=== PATIENT | male | born 1990 | race Caucasian/White ===

== ENCOUNTER 2018-01-16 19:28 | Inpatient (IN) | payer MEDICAID, SELFPAY ==
[2018-01-16 19:29] VITALS: BP 147/76; PULSE 87; RESP 16; TEMP 36.8; O2SAT 99; BMI 27.5
[2018-01-16 21:47] LABS: Absolute Lymphocyte Count 1.43 X10^3/ul (0.83-4.51); Absolute Neutrophil Count 4.7 X10^3/uL (2.0-7.7); Basophil# 0.02 X10^3/uL; Basophil% 0.3 % (0-1); Eosinophils% 1.5 % (0-5); Hematocrit 39.3 % (40-54); Hemoglobin 13.2 g/dl (13.0-16.5); Lymphocyte # 1.43 X10^3/ul (4.0); Lymphocyte % 20.9 % (19-41); Mean Corp Hgb Conc 33.6 g/gl (32-36); Mean Corpuscular Hgb 30.5 pg (27.0-32.0); Mean Corpuscular Volume 90.8 fL (80-94); Mean Platelet Vol. 9.4 fl (6.2-12.0); Monocyte# 0.58 X10^3/uL; Monocyte% 8.5 % (0-10); Neutrophil % 68.8 % (47-70); Platelet Count 207 K/mm3 (150-450); RBC Distribution Width CV 13.1 % (11.6-14.6); RBC Distribution Width SD 43.2 fl (35.1-43.9); Red Blood Count 4.33 M/mm3 (4.6-6.2); White Blood Count 6.8 K/mm3 (4.4-11.0)
[2018-01-16 21:48] LABS: Amphetamine Urine VISTA NEGATIVE (<1000 ng/mL); Barbiturate Urine VISTA NEGATIVE (< 200 ng/mL); Benzodiazepine Urine VISTA NEGATIVE (< 200 ng/mL); Cocaine Urine VISTA NEGATIVE (< 300 ng/mL); Ecstacy Urine VISTA NEGATIVE (< 500 ng/mL); Methadone Urine VISTA NEGATIVE (< 300 ng/mL); PCP Urine VISTA NEGATIVE (< 25 ng/mL); THC Urine VISTA NEGATIVE (< 50 ng/mL); Vista UDS pH Range 7
[2018-01-16 21:48] LABS: POSITIVE COUNT NO; POSITIVE DIFFERENTIAL NO; POSITIVE MORPHOLOGY NO
[2018-01-16 22:31] VITALS: BP 125/63; PULSE 61; RESP 16; O2SAT 98
[2018-01-16 22:37] LABS: Anion Gap 8 (5-15); BUN 8 mg/dL (7-18); BUN/Creat Ratio 11.3 RATIO (10-20); Calcium,Total 8.9 mg/dL (8.5-10.1); Chloride 107 mmol/L (98-107); Creatinine, Serum 0.71 mg/dL (0.70-1.30); EST Glomerular Filtration Rate 140 mL/min (>60); Est Glom Filt Rate - Afr Amer 169 mL/min (>60); Estimated Creatinine Clearance 185.13 ml/min; Glucose 97 mg/dL (74-106); Potassium 3.8 mmol/L (3.5-5.1); Sodium Level 142 mmol/L (136-145)
--- NOTE | 2018-01-16 23:08 | PCM.HP.STD ---
Problem List (1) Heroin withdrawal Status: Acute (2) Polysubstance dependence Status: Acute (3) Tobacco abuse Status: Chronic History of Present Illness Date of Admission: 01/16/18 Chief Complaint: Nausea, vomiting and diarrhea x 1 day The patient is a 27 year old M with a significant history of polysubstance dependence (heroine, tobacco) who presents with 1 day history of nausea, vomiting and diarrhea. Associated with his symptoms is cold sweats, muscle aches, shakiness, anxiety, runny nose and cravings for heroin. He last used heroine 2 days ago. At emergency department his CINA score was 30. Smokes about about half pack of cigarettes per day. Past Medical History Past Medical History (Chronic Problems): Chronic Problems Tobacco abuse (Chronic) Allergies No Known Allergies Allergy (Verified 01/16/18 19:32) Home Medications: Ambulatory Orders Medication Instructions Recorded NK [NK] 01/16/18 Surgical History: no surgical history Smoking Status: Current every day smoker Alcohol: None Drugs: Heroin Review of Systems Constitutional: Denies: Chills, Fever, Weight Change HEENT: Denies: Head Aches, Sinus Congestion, Sinus Drainage Cardiovascular: Denies: Chest Pain, Palpitations Respiratory: Denies: Cough, Shortness of breath at rest, Sputum production Gastrointestinal: Reports: Diarrhea, Nausea, Vomiting Genitourinary: Denies: Dysuria Musculoskeletal: Denies: Joint Pain, Joint Tenderness Skin: Denies: Rash, Wounds Neurological: Denies: Numbness, Tingling, Focal weakness Psychiatric: Reports: Anxiety Hematologic/ Lymphatic: Denies: Easy Bruising, Easy Bleeding VTE Information - Inpt Only VTE Present on Admission: No VTE Mechan Device Prophylaxis: None VTE Pharm Prophylaxis ordered?: No Reason prophylaxis not ordered:: Treatment Not Indicated - Low risk Patient Problems: Active and Suspected Problems Heroin withdrawal (Acute) Polysubstance dependence (Acute) - Physical Exam General: Alert, Oriented x3, Cooperative HEENT: Atraumatic, PERRLA, EOMI, Normocephalic Neck: Supple, No JVD, Negative Carotid Bruits Lungs: Clear to auscultation, Normal air movement Cardiovascular: Regular rate, No murmurs Abdomen: Bowel Sounds Present, Soft, Non Tender Extremities: No edema, Capillary Refill Less than 3 Seconds Skin: No rashes, No breakdown Musculoskeletal: No Tenderness to Palpation of Joints or Extremities Neurological: Cranial nerves II-XII grossly intact Psych/Mental Status: Anxious Vital Signs Temp Pulse Resp BP Pulse Ox 98.2 F 61 16 125/63 H 98 01/16/18 19:29 01/16/18 22:31 01/16/18 22:31 01/16/18 22:31 01/16/18 22:31 Oxygen Delivery Method Room Air Weight: 99.79 kg Body Mass Index (BMI) 27.5 Laboratory Tests Past 24 Hrs 01/16/18 01/16/18 01/16/18 21:15 21:40 21:40 WBC 6.8 RBC 4.33 L Hgb 13.2 Hct 39.3 L MCV 90.8 MCH 30.5 MCHC 33.6 RDW 13.1 RDW Differential 43.2 Plt Count 207 MPV 9.4 Immature Gran % (Auto) 0.000 Neut % (Auto) 68.8 Lymph % (Auto) 20.9 [place] % (Auto) 8.5 Eos % (Auto) 1.5 Baso % (Auto) 0.3 Absolute Neuts (auto) 4.7 Absolute Lymphs (auto) 1.43 Total Counted Not Reportable Sodium 142 Potassium 3.8 Chloride 107 Carbon Dioxide 27.0 Anion Gap 8 BUN 8 Creatinine 0.71 Estim Creat Clear Calc 185.13 Est GFR (MDRD) Af Amer 169 Est GFR (MDRD) Non-Af 140 BUN/Creatinine Ratio 11.3 Glucose 97 Calcium 8.9 Urine Opiates Screen NEGATIVE Urine Methadone Screen NEGATIVE Ur Barbiturates Screen NEGATIVE Ur Phencyclidine Scrn NEGATIVE Ur Amphetamines Screen NEGATIVE U Methamphetamin-MDMA NEGATIVE U Benzodiazepines Scrn NEGATIVE Urine Cocaine Screen NEGATIVE U Cannabinoids Screen NEGATIVE Ur Drug Screen Comment Ethyl Alcohol 01/16/18 21:40 WBC RBC Hgb Hct MCV MCH MCHC RDW RDW Differential Plt Count MPV Immature Gran % (Auto) Neut % (Auto) Lymph % (Auto) [place] % (Auto) Eos % (Auto) Baso % (Auto) Absolute Neuts (auto) Absolute Lymphs (auto) Total Counted Sodium Potassium Chloride Carbon Dioxide Anion Gap BUN Creatinine Estim Creat Clear Calc Est GFR (MDRD) Af Amer Est GFR (MDRD) Non-Af BUN/Creatinine Ratio Glucose Calcium Urine Opiates Screen Urine Methadone Screen Ur Barbiturates Screen Ur Phencyclidine Scrn Ur Amphetamines Screen U Methamphetamin-MDMA U Benzodiazepines Scrn Urine Cocaine Screen U Cannabinoids Screen Ur Drug Screen Comment Ethyl Alcohol 5.0 Assessment/Plan All Active Problems Heroin withdrawal (Acute) Polysubstance dependence (Acute) The patient is a 27 year old M with a significant history of polysubstance dependence (heroine, tobacco) who presents with 1 day history of nausea, vomiting and diarrhea. Associated with his symptoms is cold sweats, muscle aches, shakiness, anxiety, runny nose and cravings for heroin. He last used heroine 2 days ago. At emergency department his CINA score was 30. Smokes about about half pack of cigarettes per day. Heroine withdrawal Narcotic withdrawal protocol with buprenorphine. Clonidine, bentyl, hydroxyzine, methocarbamol ordered. Counseled Tobacco abuse Counseled Inpatient consult tobacco cessation Nicotine patch ordered DVT prophylaxis Low risk Not indicated. Code Visit Inpatient E&M: 70133 Init Hosp L3
--- NOTE | 2018-01-16 23:21 | ED.VISSUMM ---
- ER Visit Summary Date of Service: 01/16/18 Chief Complaint: Heroin withdrawal History of Present Illness: The patient is a 27 M who is in heroin withdrawal. His last use was 2 days ago. He uses about a gram a day. He has had nausea, vomiting and diarrhea. He has had hot and cold sensitivities. He does feel anxious. He was at [facility] and was given a clonidine patch. Physical Examination: Vital signs reviewed. HEENT exam unremarkable. Heart is tachycardic and regular rhythm without murmurs. Lungs are clear to auscultation. Abdomen is soft and nontender. Extremities reveal no edema. Skin exam normal. Neurologic exam does show some tremulousness Test Results: Screening labs are negative. Tox and alcohol are negative Emergency Department Course and Treatment: She was given Bentyl and Zofran. His withdrawal score is 30. He is moderately withdrawn. He meets criteria for admission. He has straight Medicaid. He will be discussed with the list for admission Treatment Plan: [] Disposition: Admit Impression: Heroin withdrawal This note was generated with [employer] dictation software. It may contain incorrect words, spelling, and punctuation that were not noted in review of the chart prior to signing ED Disposition - Plan for ED Patient: Chief Complaint: Substance Abuse Referrals: Care Physician,No Primary [Primary Care Provider] -
[2018-01-16] MEDS: Dicyclomine 20 MG/2 ML Vial IM (23:39)
[2018-01-16] MEDS: Ondansetron 4 MG/2 ML Vial IV (23:39)
[2018-01-17] VITALS (7 sets, daily range): BP systolic 92–119; BP diastolic 52–75; PULSE 64–78; RESP 16–18; TEMP 36.3–36.9; O2SAT 96–99; BMI 26.9
[2018-01-17] MEDS: cloNIDine HCl 0.1 MG Tablet PO ×4 (00:34→19:48)
[2018-01-17] MEDS: Buprenorphine HCl 2 MG TAB.SUBL SL ×3 (00:34→16:30)
--- NOTE | 2018-01-17 01:59 | NURSING ---
MESSAGE LEFT FOR [facility] TO SEE PT
[2018-01-17] MEDS: hydrOXYzine PAM 25 MG Capsule 50 MG PO ×3 (03:27→16:31)
[2018-01-17 06:36] LABS: Absolute Neutrophil Count 3.8 X10^3/uL (2.0-7.7); Basophil# 0.02 X10^3/uL; Basophil% 0.3 % (0-1); Eosinophil# 0.14 X10^3/uL; Hematocrit 38.5 % (40-54); Hemoglobin 12.7 g/dl (13.0-16.5); Lymphocyte % 31.7 % (19-41); Mean Corpuscular Hgb 30.4 pg (27.0-32.0); Mean Corpuscular Volume 92.1 fL (80-94); Mean Platelet Vol. 9.4 fl (6.2-12.0); Monocyte# 0.76 X10^3/uL; Neutrophil # 3.82 X10^3/uL (2.7-7.7); Platelet Count 193 K/mm3 (150-450); RBC Distribution Width CV 12.8 % (11.6-14.6); RBC Distribution Width SD 42.6 fl (35.1-43.9); Red Blood Count 4.18 M/mm3 (4.6-6.2); White Blood Count 6.9 K/mm3 (4.4-11.0)
[2018-01-17 06:40] LABS: POSITIVE COUNT NO; POSITIVE DIFFERENTIAL NO; POSITIVE MORPHOLOGY NO
[2018-01-17 06:49] LABS: Anion Gap 8 (5-15); BUN 9 mg/dL (7-18); BUN/Creat Ratio 11.9 RATIO (10-20); Calcium,Total 8.4 mg/dL (8.5-10.1); Chloride 109 mmol/L (98-107); Creatinine, Serum 0.76 mg/dL (0.70-1.30); EST Glomerular Filtration Rate 130 mL/min (>60); Est Glom Filt Rate - Afr Amer 157 mL/min (>60); Estimated Creatinine Clearance 172.95 ml/min; Glucose 92 mg/dL (74-106); Potassium 3.8 mmol/L (3.5-5.1); Sodium Level 146 mmol/L (136-145)
[2018-01-17] MEDS: Methocarbamol 750 MG Tablet PO ×2 (07:48→16:31)
--- NOTE | 2018-01-17 07:52 | PCM.PN.HOSP ---
Patient Problems: Active and Suspected Problems Heroin withdrawal (Acute) Polysubstance dependence (Acute) Subjective: Patient is a 27-year-old male with history of stents abuse who presented with acute opioid withdrawal admitted to regular nursing floor for medical stabilization Patient seen complains of being nauseous as well as experiencing muscle cramps Objective: GENERAL: cooperative HEENT: Clear conjunctiva, NECK; supple, normal thyroid, CHEST: Clear to auscultation bilaterally, HEART: Regular S1 S2, no audible murmurs ABDOMEN: soft, non-tender, normoactive bowel sounds, RECTAL: deferred EXTREMITIES: No edema, no clubbing, no cyanosis. PHYSICS INSTRUCTOR: Awake; no lateralizing signs. SKIN: No Rash Vitals/I&O's: Vital Signs Temp Pulse Resp BP Pulse Ox 97.9 F 76 16 92/75 96 01/17/18 03:30 01/17/18 03:30 01/17/18 03:30 01/17/18 03:30 01/17/18 07:29 Oxygen Delivery Method Room Air Weight: 97.8 kg Body Mass Index (BMI) 26.9 Laboratory Results 01/17/18 06:20: WBC 6.9, RBC 4.18 L, Hgb 12.7 L, Hct 38.5 L, MCV 92.1, MCH 30.4, MCHC 33.0, RDW 12.8, RDW Differential 42.6, Plt Count 193, MPV 9.4, Immature Gran % (Auto) 0.000, Neut % (Auto) 55.0, Lymph % (Auto) 31.7, [place] % (Auto) 11.0 H, Eos % (Auto) 2.0, Baso % (Auto) 0.3, Absolute Neuts (auto) 3.8, Absolute Lymphs (auto) 2.20, Total Counted Not Reportable 01/17/18 06:20: Sodium 146 H, Potassium 3.8, Chloride 109 H, Carbon Dioxide 29.0, Anion Gap 8, BUN 9, Creatinine 0.76, Estim Creat Clear Calc 172.95, Est GFR (MDRD) Af Amer 157, Est GFR (MDRD) Non-Af 130, BUN/Creatinine Ratio 11.9, Glucose 92, Calcium 8.4 L Current Medications Buprenorphine HCl (Buprenorphine Hcl) 4 mg SL Q8H OMAR PRN Reason: Taper Stop: 01/20/18 04:29 Last Admin: 01/17/18 07:49 Dose: 4 mg Clonidine (Catapres) 0.1 mg PO Q2H PRN PRN PRN Reason: Hot/Cold Sweats or Anxiety Last Admin: 01/17/18 07:49 Dose: 0.1 mg Dicyclomine HCl (Bentyl) 20 mg PO Q6H PRN PRN PRN Reason: Abdomnial Discomfort Hydroxyzine Pamoate (Vistaril Pamoate Capsule) 50 mg PO Q6H PRN PRN PRN Reason: Mild Anxiety Last Admin: 01/17/18 03:27 Dose: 50 mg Magnesium Hydroxide (Milk Of Magnesia) 30 ml PO DAILY PRN PRN PRN Reason: Constipation Methocarbamol (Methocarbamol) 750 mg PO Q6H PRN PRN PRN Reason: Muscle Aches Last Admin: 01/17/18 07:48 Dose: 750 mg Nicotine (Nicoderm Cq (Pbkc)) 14 mg TRANSDERM. DAILY OMAR Last Admin: 01/17/18 07:49 Dose: 14 mg Ondansetron HCl (Zofran Odt) 4 mg PO Q6H PRN PRN PRN Reason: NAUSEA Zolpidem Tartrate (Ambien (Generic)) 5 mg PO QHS PRN PRN PRN Reason: INSOMNIA Medical Necessity - Tobacco Use Smoking Status: Current every day smoker Assessment/Plan All Active Problems Heroin withdrawal (Acute) Polysubstance dependence (Acute) Patient is a 27-year-old male with history of stents abuse who presented with acute opioid withdrawal admitted to regular nursing floor for medical stabilization 1. Acute opioid withdrawal: Patient has been admitted to the regular nursing floor for medical stabilization using Subutex 2. Tobacco dependence counseled on cessation, offered nicotine patch for tobacco cravings 3. Pressure with anxiety patient to follow-up with psychiatrist following his medical stabilization 4. DVT prophylaxis low risk did encourage early ambulation Code Visit Inpatient E&M: 77967 [facility] Hosp L3
[2018-01-17] MEDS: Dicyclomine 10 MG Capsule 20 MG PO ×2 (09:43→16:31)
[2018-01-18] MEDS: Buprenorphine HCl 2 MG TAB.SUBL SL ×3 (00:23→16:23)
[2018-01-18] MEDS: Zolpidem Tartrate 5 MG Tablet PO (00:26)
[2018-01-18 00:27] VITALS: BP 115/61; PULSE 59; RESP 16; TEMP 36.6
[2018-01-18 07:40] VITALS: O2SAT 97
--- NOTE | 2018-01-18 08:31 | PN_ITS ---
Patient Problems: Active and Suspected Problems Heroin withdrawal (Acute) Polysubstance dependence (Acute) Subjective: He still complains of night sweats and insomnia as well as cramps in his lower extremities Objective: GENERAL: cooperative HEENT: Clear conjunctiva, NECK; supple, normal thyroid, CHEST: Clear to auscultation bilaterally, HEART: Regular S1 S2, no audible murmurs ABDOMEN: soft, non-tender, normoactive bowel sounds, RECTAL: deferred EXTREMITIES: No edema, no clubbing, no cyanosis. RESIDENTIAL CASE MANAGER: Awake; no lateralizing signs. SKIN: No Rash Vitals/I&O's: Vital Signs Temp Pulse Resp BP Pulse Ox 97.9 F 59 L 16 115/61 99 01/18/18 00:27 01/18/18 00:27 01/18/18 00:27 01/18/18 00:27 01/17/18 07:50 Oxygen Delivery Method Room Air Weight: 97.8 kg Current Medications Buprenorphine HCl (Buprenorphine Hcl) 2 mg SL Q8H OMAR PRN Reason: Taper Stop: 01/20/18 04:29 Last Admin: 01/18/18 00:23 Dose: 2 mg Clonidine (Catapres) 0.1 mg PO Q2H PRN PRN PRN Reason: Hot/Cold Sweats or Anxiety Last Admin: 01/17/18 19:48 Dose: 0.1 mg Dicyclomine HCl (Bentyl) 20 mg PO Q6H PRN PRN PRN Reason: Abdomnial Discomfort Last Admin: 01/17/18 16:31 Dose: 20 mg Hydroxyzine Pamoate (Vistaril Pamoate Capsule) 50 mg PO Q6H PRN PRN PRN Reason: Mild Anxiety Last Admin: 01/17/18 16:31 Dose: 50 mg Magnesium Hydroxide (Milk Of Magnesia) 30 ml PO DAILY PRN PRN PRN Reason: Constipation Methocarbamol (Methocarbamol) 750 mg PO Q6H PRN PRN PRN Reason: Muscle Aches Last Admin: 01/17/18 16:31 Dose: 750 mg Nicotine (Nicoderm Cq (Pbkc)) 14 mg TRANSDERM. DAILY OMAR Last Admin: 01/17/18 07:49 Dose: 14 mg Ondansetron HCl (Zofran Odt) 4 mg PO Q6H PRN PRN PRN Reason: NAUSEA Zolpidem Tartrate (Ambien (Generic)) 5 mg PO QHS PRN PRN PRN Reason: INSOMNIA Last Admin: 01/18/18 00:26 Dose: 5 mg Medical Necessity - Tobacco Use Smoking Status: Current every day smoker Assessment/Plan All Active Problems Heroin withdrawal (Acute) Polysubstance dependence (Acute) Patient is a 27-year-old male with history of stents abuse who presented with acute opioid withdrawal admitted to regular nursing floor for medical stabilization 1. Acute opioid withdrawal: Patient has been admitted to the regular nursing floor for medical stabilization using Subutex 2. Tobacco dependence counseled on cessation, offered nicotine patch for tobacco cravings 3. Pressure with anxiety patient to follow-up with psychiatrist following his medical stabilization 4. DVT prophylaxis low risk did encourage early ambulation Code Visit Inpatient E&M: 91765 [facility] Hosp L2
[2018-01-18] MEDS: Dicyclomine 10 MG Capsule 20 MG PO (08:45)
[2018-01-18] MEDS: hydrOXYzine PAM 25 MG Capsule 50 MG PO ×2 (08:45→16:24)
[2018-01-18] MEDS: Methocarbamol 750 MG Tablet PO ×2 (08:45→20:16)
[2018-01-18] MEDS: Ondansetron ODT 4 MG Tablet PO (08:45)
[2018-01-18] MEDS: cloNIDine HCl 0.1 MG Tablet PO ×3 (08:45→20:16)
[2018-01-18 08:50] VITALS: BP 125/81; PULSE 62; RESP 16; TEMP 36.6; O2SAT 100
--- NOTE | 2018-01-18 15:07 | CHAPLAIN ---
Type of Pastoral Visit _x__ Initial Visit ___ Follow-up Visit ___ On-call Visit ___ General Patient Visit ___ Spiritual Assessment ___ Family Conference ___ Bereavement ___ Rapid Response ___ Code Blue ___ Other (describe below) Pastoral Care Referral From _x__ Patient ___ Family ___ Nurse ___ Physician ___ [employer] ___ Home Care And Home Health Aides Teacher ___ Other (describe below) Sacrament/Intervention _x__ Active listening ___ Anointing ___ Shinto ___ Bereavement ___ Communion ___ [employer] exploration ___ ___ Life review _x__ Prayer ___ Reconciliation ___ Sacrament of Sick _x__ Supportive presence ___ Wedding ___ Other (describe below) Pastoral Comments introduction and offer of support to patient; pt describes desire to go to rehab and to get well; pt speaks of this relapse and falling back into what I didn't want to do; pt says he has support of girlfriend, her family, and his father; pt admits that he will lose that support if he doesn't get back on track; pt says that he does not go to quaker but believes in a Higher Power; pt welcomes prayer and visit of watch crystal cutter;
[2018-01-18 16:15] VITALS: BP 119/58; PULSE 73; RESP 18; TEMP 36.6
[2018-01-18 20:09] VITALS: BP 113/64; PULSE 72; RESP 16; TEMP 36.6
[2018-01-19] MEDS: Zolpidem Tartrate 5 MG Tablet PO
[2018-01-19 04:43] VITALS: BP 135/65; PULSE 69; RESP 16; TEMP 36.6
[2018-01-19] MEDS: Buprenorphine HCl 2 MG TAB.SUBL SL (04:47)
[2018-01-19 07:19] VITALS: O2SAT 99
[2018-01-19] MEDS: hydrOXYzine PAM 25 MG Capsule 50 MG PO ×2 (08:20)
--- NOTE | 2018-01-19 08:31 | DCINST_ITS ---
- Discharge Diagnoses Current Active Problems: Current Active and Chronic Problems Heroin withdrawal (Acute) Polysubstance dependence (Acute) Tobacco abuse (Chronic) You will use the following diet at home:: Regular Your food should be the consistency of: Regular Discharge Activity: May Not Drive, May not drive while taking narcotic pain medications. Call your doctor if you observe: Fever of 101 or Higher, Shortness of breath, Chest pain Allergies/Adverse Reactions: Allergies No Known Allergies Allergy (Verified 01/16/18 19:32) Medications to take at Discharge NK [NK] 01/16/18 Primary Care Physician: Care Physician,No Primary [Primary Care Provider] - Please follow up with your Primary Care Physician in: in 2 weeks Test Results: Test results from this visit will be discussed in further detail at your follow- up appointment, if applicable.
--- NOTE | 2018-01-19 08:32 | DS.PCM_ITS ---
Discharge Date and Diagnosis Date of Admission: 01/16/18 Date of Discharge: 01/19/18 - Primary Discharge Diagnosis Active and Suspected Problems Acute opioid withdrawal: 2. Tobacco dependence counseled on cessation - Secondary Discharge Diagnosis Chronic Problems Tobacco abuse (Chronic) Hospital Course and Treatment Summary of Care Provided: [] Patient is a 27-year-old male with history of stents abuse who presented with acute opioid withdrawal admitted to regular nursing floor for medical stabilization 1. Acute opioid withdrawal: Patient has been admitted to the regular nursing floor for medical stabilization using Subutex. Patient does not have symptoms of withdrawal. It was well controlled. Patient has follow-up with outpatient rehab in [place]. 2. Tobacco dependence counseled on cessation, offered nicotine patch for tobacco cravings 3. anxiety patient to follow-up with psychiatrist following his medical stabilization 4. DVT prophylaxis low risk did encourage early ambulation Discharge medication reconciliation done. Follow-up instructions completed. Discharge Activity: May Not Drive, May not drive while taking narcotic pain medications. Call your doctor if you observe: Fever of 101 or Higher, Shortness of breath, Chest pain Home Medications: Medications to take at Discharge NK [NK] 01/16/18 Primary Care Physician: Care Physician,No Primary [Primary Care Provider] - Please follow up with your Primary Care Physician in: in 2 weeks Medical Necessity - Tobacco Use Smoking Status: Current every day smoker Meaningful Use Info Meaningful Use Diagnoses (Choose all that apply): None applicable Code Visit Inpatient E&M: 54962 Disch Hosp
[2018-01-19 10:17] VITALS: BP 130/57; PULSE 76; RESP 16; TEMP 36.9
== END 2018-01-19 11:00 | disposition home or self-care (01) | DRG 435 ==
LOC: ED 21:11 → MS2 23:42
PROVIDERS: Admitting Provider Hospitalist; Emergency Provider Emergency Medicine; Visit Provider Internal Medicine
DX: F11.23 Opioid dependence with withdrawal (principal); F17.210 Nicotine dependence, cigarettes, uncomplicated
CPT/HCPCS: 36415; 80048; 80307; 80320; 85025; 97802; 99284; G0480; J2405